=== PATIENT | male | born 2000 | race Caucasian/White ===

== ENCOUNTER 2019-01-04 08:41 | Day surgery (SDC) | payer OTHER ==
[2019-01-04] MEDS ORDERED: LIDOCAINE 4% SOLUTION 50 ML BTL (10:32)
[2019-01-04] MEDS ORDERED: MIDAZOLAM 1 MG/ML 2 ML INJ ×3 (11:14→11:15)
[2019-01-04] MEDS ORDERED: FENTAnyl 50 MCG/ML VIAL (11:15)
== END 2019-01-04 14:12 | disposition home or self-care (01) ==
LOC: GIL 08:41
DX: K29.50 Unspecified chronic gastritis without bleeding (principal)
CPT/HCPCS: 43239; 88305; 88312